=== PATIENT | female | born 1955 | race American Indian/Alaskan Native ===

== ENCOUNTER 2021-02-06 22:45 | Inpatient (IN) | payer OTHER ==
[~2021-02-06] VITALS: Ht 167.6 cm; Wt 77.4 kg
[~2021-02-06 22:45] MED LIST: ATEN25; ATOM60; Augmentin 875-1 EACH PO; BUDE32NIS; CALCAVITD PO; CALPHO600; CHLO25A; CLIN300 PO; CRUTCH3 USE; Flonase 0.05% N16 GM; HYDACE5; HYDACE5 PO; HYDACE5325 PO; IBUP600 PO; LEVOTHYROXIN; LEVSOD137; LEVSOD150 PO; Lisinopril2.5 MG; METOPROLOL; MULVITA; NAPR500 PO; NEOPOLHCSU AS; NEOPOLHYDS OT; Norco 5-325 Ta1 EACH PO; OXYACE5T PO; PENVK500 PO; POTA8; PSEU120ER PO; SERT50; VITAMINS; ZIPR60; [UNRECOGNIZED DRUG - OTHER]
[2021-02-07 00:30] LABS: Base Excess Venous 4.8 mmol/L; Bicarbonate Venous 28.1 mmol/L (24.0-30.0); PCO2 Venous 44.5 mmHg (38-42); PO2 Venous 185 mmHg (38-42); pH Blood Venous 7.43 (7.34-7.37)
[2021-02-07 00:30] LABS: Calcium, Ionized (POC) 0.59 mmol/L (1.10-1.46); Chloride (POC) 93 mmol/L (98-108); Creatinine (POC) 2.1 mg/dL (0.6-1.0); Glucose (ISTAT POC) 126 mg/dL (70-99); Hemoglobin (POC) 13.6 g/dL (12.0-16.0); Potassium (POC) 3.1 mmol/L (3.5-5.5); Sodium (POC) 138 mmol/L (135-148); Total CO2 (POC) 29 mmol/L (21-32)
[2021-02-07 00:40] LABS: BASOPHILS ABSOLUTE AUTO 0.06 K/mm3 (0.00-0.23); BASOPHILS PERCENT AUTO 0 % (0-2); EOSINOPHILS ABSOLUTE AUTO 0.03 K/mm3 (0.00-0.68); EOSINOPHILS PERCENT AUTO 0 % (0-6); Hematocrit 36.9 % (33.0-51.0); Hemoglobin 12.1 g/dL (11.5-16.0); IMMATURE GRAN ABSOLUTE AUTO 0.12 K/mm3 (0.00-0.10); IMMATURE GRAN PERCENT AUTO 1 % (0-1); LYMPHOCYTES ABSOLUTE AUTO 1.32 K/mm3 (0.84-5.20); LYMPHOCYTES PERCENT AUTO 6 % (21-46); MONOCYTES ABSOLUTE AUTO 1.43 K/mm3 (0.16-1.47); MONOCYTES PERCENT AUTO 6 % (4-13); Mean Corpuscular HGB 30.5 pg (26.0-34.0); Mean Corpuscular HGB Conc 32.8 g/dL (31.5-36.5); Mean Corpuscular Volume 93 fL (80-100); Mean Platelet Volume 9.9 fL (9.1-12.4); NEUTROPHILS ABSOLUTE AUTO 19.42 K/mm3 (1.96-9.15); NEUTROPHILS PERCENT AUTO 87 % (41-73); Platelet Count 225 K/mm3 (150-400); RDW Coefficient Variation 14.6 % (11.7-14.2); RDW Standard Deviation 49.3 fL (35.1-46.3); Red Blood Cell Count 3.97 M/mm3 (3.80-5.20); White Blood Cell Count 22.38 K/mm3 (4.00-11.30)
[2021-02-07 01:30] LABS: Ethanol (Alcohol), Blood, Med <3 mg/dL; Troponin I <0.015 ng/mL (0.000-0.040)
[2021-02-07 01:31] LABS: Alanine Aminotransfer (ALT/SGP 27 U/L (12-78); Albumin, Blood 3.4 g/dL (3.4-5.0); Albumin/Globulin Ratio 0.7 (0.8-1.8); Alk Phos 92 U/L (50-136); Anion Gap 7 mmol/L (6-16); Aspartate Aminotrans (AST/SGOT 47 U/L (12-37); Bilirubin, Total 1.7 mg/dL (0.1-1.0); Blood Urea Nitrogen 21 mg/dL (8-24); Bun/Creatinine Ratio 10.4 (12.0-20.0); CO2, Blood 32 mmol/L (21-32); CPK Creatine Kinase 2451 U/L (26-193); Calcium, Blood 5.6 mg/dL (8.5-10.1); Chloride, Blood 94 mmol/L (98-108); Creatinine, Blood 2.02 mg/dL (0.40-1.00); Globulin, Blood 4.9 g/dL (2.2-4.0); Glomerular Filtration Rate 26 (60-); Glucose, Blood 130 mg/dL (70-99); Potassium, Blood 2.8 mmol/L (3.5-5.5); Sodium, Blood 133 mmol/L (136-145); Total Protein, Blood 8.3 g/dL (6.4-8.2)
[2021-02-07 01:51] LABS: Creatine Kinase MB 5.2 ng/mL (0.0-3.6); Creatine Kinase MB Index 0.2 (0.0-4.0)
[2021-02-07 02:26] LABS: Source, Urine Catheter
[2021-02-07 02:29] LABS: Bilirubin, Urine Neg (Neg); Blood, Urine 2+ (Neg); Glucose Qualitative, Urine Neg (Neg); Ketones, Urine Neg (Neg); Leukocyte Esterase, Urine Neg (Neg); Nitrite, Urine Neg (Neg); Protein, Urine 2+ (Neg); Urobilinogen, Urine NORM (Normal); pH, Urine 6.5 (5.0-8.0)
[2021-02-07 02:30] LABS: Appearance, Urine Clear (Clear); Color, Urine Yellow (P-Yellow)
[2021-02-07 02:36] LABS: Bacteria Not Seen /hpf; Red Blood Cells, Urine 0-2 /hpf (0-2); White Blood Cells, Urine 0-2 /hpf (0-5)
[2021-02-07 02:37] LABS: Mucus Light (0-Heavy); Squamous Epithelial Cells Few /hpf (Few)
[2021-02-07 02:42] LABS: U Amphetamine Screen DETECTED; U Barbituate Screen Not Detected; U Benzodiazapine Screen Not Detected; U Buprenorphine Screen Not Detected; U Cannabinoids Screen Not Detected; U Cocaine Screen Not Detected; U Methadone Screen Not Detected; U Methamphetamine Screen DETECTED; U Opiates Screen Not Detected; U Oxycodone Screen Not Detected; U Phencyclidine Screen Not Detected; U Propoxyphene Screen Not Detected
[2021-02-07 05:33] LABS: BASOPHILS ABSOLUTE AUTO 0.06 K/mm3 (0.00-0.23); BASOPHILS PERCENT AUTO 0 % (0-2); EOSINOPHILS ABSOLUTE AUTO 0.09 K/mm3 (0.00-0.68); EOSINOPHILS PERCENT AUTO 0 % (0-6); Hematocrit 38.4 % (33.0-51.0); Hemoglobin 12.6 g/dL (11.5-16.0); IMMATURE GRAN ABSOLUTE AUTO 0.14 K/mm3 (0.00-0.10); IMMATURE GRAN PERCENT AUTO 1 % (0-1); LYMPHOCYTES ABSOLUTE AUTO 1.53 K/mm3 (0.84-5.20); LYMPHOCYTES PERCENT AUTO 6 % (21-46); MONOCYTES ABSOLUTE AUTO 1.56 K/mm3 (0.16-1.47); MONOCYTES PERCENT AUTO 6 % (4-13); Mean Corpuscular HGB 30.6 pg (26.0-34.0); Mean Corpuscular HGB Conc 32.8 g/dL (31.5-36.5); Mean Corpuscular Volume 93 fL (80-100); Mean Platelet Volume 9.4 fL (9.1-12.4); NEUTROPHILS ABSOLUTE AUTO 20.83 K/mm3 (1.96-9.15); NEUTROPHILS PERCENT AUTO 86 % (41-73); Platelet Count 234 K/mm3 (150-400); RDW Coefficient Variation 14.4 % (11.7-14.2); RDW Standard Deviation 49.3 fL (35.1-46.3); Red Blood Cell Count 4.12 M/mm3 (3.80-5.20); White Blood Cell Count 24.21 K/mm3 (4.00-11.30)
[2021-02-07 06:10] LABS: Albumin/Globulin Ratio 0.6 (0.8-1.8); Bilirubin, Total 1.3 mg/dL (0.1-1.0); Bun/Creatinine Ratio 10.4 (12.0-20.0); Calcium, Blood 6.1 mg/dL (8.5-10.1); Creatinine, Blood 1.73 mg/dL (0.40-1.00); Free Thyroxine 0.43 ng/dL (0.70-1.60); Globulin, Blood 4.9 g/dL (2.2-4.0); Magnesium, Blood 1.8 mg/dL (1.6-2.4); Potassium, Blood 2.8 mmol/L (3.5-5.5); Total Protein, Blood 7.9 g/dL (6.4-8.2)
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
--- NOTE | 2021-02-07 12:58 | NUR ---
PODIATRY INITIALLY WHEN THE PT WAS ADMITTED A PODIATRY CONSULT WAS ORDERED, THE CONSULT WAS CALLED IN TO THE ANSWERING SERVICE BUT RN WAS INFORMED NO UROLOGY PHYSICIAN ASSISTANT WAS ONCALL. RN MATO REACHED OUT TO DR. JACOME AND WAS UNABLE TO MAKE CONTACT WITH DR. COLLADO TO SEE IF THEY WOULD BE WILLING TO SEE THE PATIENT. DR. JACOME WAS UNABLE. DR. FERNANDEZ ASKED THAT AN ORTHO CONSULT THEN BE MADE AND SEE IF MELONY COULD HELP. DR. TY STATED HE WAS UNABLE TO ASSIST WITH THIS PATIENT AFTER REVIEWING THE XRAY AND TO REACH OUT AGAIN TO PODIATRY. DR. PANCHAL WAS UPDATED ON THE CONSULT AND AT THIS TIME ALL CONSULTS HAVE BEEN DISCONTINUED.
[2021-02-07 17:50] LABS: Bun/Creatinine Ratio 9.4 (12.0-20.0); Creatinine, Blood 1.59 mg/dL (0.40-1.00); Potassium, Blood 3.4 mmol/L (3.5-5.5)
[2021-02-07 18:00] LABS: Calcium, Blood 5.7 mg/dL (8.5-10.1)
--- NOTE | 2021-02-07 19:12 | NUR ---
SHIFT SUMMARY PT CONTINUES TO BE LETHARGIC, SHE IS AROUSABLE HOWEVER. PT HAS A SIGNIFICANT AMOUNT OF PAIN SURROUNDING THE FOREGIN BODY IN HER RIGHT FOOT; IT IS RED AND SWOLLEN. PODIATRY WAS UNAVAILABLE SO DYLON FERNANDEZ ASSISTED DR. John PANCHAL IN DRAINING THE ABCESS AND ATTEMPTING TO REMOVE THE FOREGIN BODY. DR PANCHAL WAS UNABLE TO RETRIEVE THE OBJECT BUT WAS ABLE TO DRAIN THE ABCESS POCKET. THE SITE WAS PACKED WITH WET ROPE GAUZE, COVERED WITH 4x4'S WRAPPED IN KERLEX AND TAPED. PT TOLERATED WELL, PT WAS GIVEN 1MG OF DILAUDID FOR PAIN AND LIDOCAINE WITH EPI WAS USED A NUMBING AGENT. PT MET WITH AN ADVOCATE FROM [employer] [facility] TODAY TO GET SOME EXTRA SUPPORT WITH A SAFE ENVIRONMENT AT HOME. PT HAD SIGNIFICANT POTASSIUM REPLACEMENT TODAY. PT IS RESTING IN BED AT THIS TIME
--- NOTE | 2021-02-07 21:42 | NUR ---
PT UPDATE LAB CALLED W/ BLOOD CULTURE RESULT: GRAM + COCCI IN CLUSTERS. CALL MADE TO PHARMACY. PHARMACY STATES THAT LEVAQUIN, WHICH THE PT IS ON, WOULD NOT FULLY COVER. CALL PLACED TO MD ALANIZ. AWARE AND WITH NO FURTHER ORDERS.
--- NOTE | 2021-02-08 04:32 | NUR ---
SHIFT SUMMARY NO ACUTE CHANGES THIS SHIFT. VSS. PT A&OX4, DROWSY BUT ANSWERS QUESTIONS APPROPRIATELY. SP02>92% ON RA. TELEMETRY READS SR, HR 70'S. PT DENIES PAIN EXCEPT WHEN R FOOT IS TOUCHED. PT REPOSITIONINED SELF T/O NIGHT. SLEPT MOST OF SHIFT. CALL LIGHT IN REACH. WILL GIVE REPORT TO ONCOMING NURSE.
--- NOTE | 2021-02-08 12:53 | NUR ---
REPORT GIVEN TO DYLON ANDERS ON MEDICAL FLOOR TO ASSUME CARE FOR IN HOUSE TRANSFER.
--- NOTE | 2021-02-08 13:14 | NUR ---
PT TRANSFERED TO 328, REPORT CALLED BY JIM OSBORNE. PT WITH POTASSIUM INFUSING AT 12.5ML/HR PT WAS UNABLE TO TOLERATE A RATE HIGHER THAN 12.5 WITH NS INFUSING ALONG SIDE OF IT. MARTITA OSBORNE MADE AWARE OF [facility] CONSULT THAT THEY WILL PROVIDE PT WITH SAFE SPACE AND RIDE UPON D/C
--- NOTE | 2021-02-08 18:30 | NUR ---
SHIFT SUMMARY- PT TRANSFERED FROM PCU THIS AFTERNOON. SHE IS RECIEVING HER IV POTASSIUM. SHE HAS BEEN ASLEEP SINCE TRANSFER. 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 SHE RECIEVED TYLENOL FOR PAIN. HER BED IS IN THE LOW POSITION AND CALL LIGHT IS WITIN REACH.
[2021-02-09 01:38] LABS: Creatinine, Blood 1.46 mg/dL (0.40-1.00)
--- NOTE | 2021-02-09 04:37 | NUR ---
SUMMARY PT HAS SLEPT T/O SHIFT. PT ONLY WOKE UP TO ASK FOR PAIN MED. PT TX W/ TYLENOL W/ RELIEF. PT HAD A CRITAL CALCIUM. DR GONZALEZ CALLED AND CALCIUM WAS ORDERED. NO OTHER ISSUES NOTED. PT CURRENTLY SLEEPINGIN NO DISTRESS. CALL LIGHT IN REACH.
[2021-02-09 07:09] LABS: HBSAG SCREEN Negative (Negative); HEP A AB, IGM Negative (Negative); HEP B CORE AB, IGM Negative (Negative); HEP C VIRUS AB <0.1 (0.0-0.9); HIV SCREEN 4TH GENERATION WRFX Non Reactive (Non Reactive)
[2021-02-09 13:24] LABS: Bun/Creatinine Ratio 10.4 (12.0-20.0); Calcium, Blood 6.5 mg/dL (8.5-10.1); Creatinine, Blood 1.25 mg/dL (0.40-1.00); Potassium, Blood 2.6 mmol/L (3.5-5.5)
--- NOTE | 2021-02-09 18:43 | NUR ---
SHIFT SUMMARY- PT HAS BEEN SLEEPING MOST OF THIS SHIFT. SHE WOKE UP FOR MEALS. SHE HAS BEEN HAVING INC VOIDS. SHE REQUIRED BED CHANGES TWICE THIS SHIFT. SHE IS EATING AND DRINKING WELL. HER BED IS IN THE LOW POSITION AND CALL LIGHT IS WITIN REACH.
--- NOTE | 2021-02-09 19:15 | NUR ---
ASSUMED CARE RECEIVED REPORT FROM DYLON TILLEY. PT RESTING, DROWSY, BUT AROUSES TO VERBAL STIMULI, PER REPORT, HAS BEEN SLEEPING T/O MUCH OF THE DAY. NO ACUTE NEEDS ASSESSED AT THIS TIME. CALL LIGHT, POSSESSIONS IN REACH, BED IN LOW AND LOCKED POSITION WITH ALARMS ON.
--- NOTE | 2021-02-09 19:25 | NUR ---
ASSUMED CARE RECEIVED REPORT FROM LADI Urena RN. PT RESTING, IN NAD. NO ACUTE NEEDS ASSESSED AT THIS TIME. CALL LIGHT, POSSESSIONS IN REACH. BED IN LOW AND LOCKED POSITION WITH ALARMS ON.
--- NOTE | 2021-02-09 19:54 | NUR ---
SPOKE TO DR. ALANIZ REGARDING PT'S K+ 2.6. ORDERS RECEIVED.
--- NOTE | 2021-02-10 04:10 | NUR ---
SPOKE TO DR. RIGGS REGARDING PT'S PREVIOUS K+ OF 2.6 AND REPLACEMENT WITH IV KCL OVERNIGHT, AND NEED FOR A RE-CHECK OF K+ LEVEL. ORDERS RECEIVED.
--- NOTE | 2021-02-10 04:51 | NUR ---
BEACH ATTENDANT SUMMARY PT DROWSY, AROUSABLE TO VERBAL STIMULI. SLEPT T/O MUCH OF THE NIGHT. VS REVIEWED,WNL. PAIN MANAGED WITH PRN TYLENOL, WITH GOOD RELIEF. RT FOOT/RLE REMAINS RED AND EDEMATOUS, TENDER TO PALPATION. KERLIX APPLIED TO RT FOOT, DRSG C/D/I. ELEVATED ON PILLOWS. REMAINS INCONTINENT OF URINE, ATTENDS IN PLACE. NO ACUTE NEEDS ASSESSED AT THIS TIME. CALL LIGHT, POSSESSIONS IN REACH, BED IN LOW AND LOCKED POSITION WITH ALARMS ON. WILL CONTINUE TO PROVIDE CARE UNTIL REPORT GIVEN TO ONCOMING RN.
[2021-02-10 05:09] LABS: Bun/Creatinine Ratio 8.7 (12.0-20.0); Calcium, Blood 6.2 mg/dL (8.5-10.1); Creatinine, Blood 1.04 mg/dL (0.40-1.00); Potassium, Blood 2.9 mmol/L (3.5-5.5)
[2021-02-10 12:44] LABS: Vancomycin, Trough 9.6 ug/mL (5.0-10.0)
--- NOTE | 2021-02-10 18:34 | NUR ---
SHIFT SUMMARY: NO ACUTE EVENTS TO REPORT THSI SHIFT. PT A&O; CALM AND COOPERATIVE WITH CARE. NO C/O PAIN THIS SHIFT. CELLULITIS R FOOT; WARM, RED; IV ABX CONTINUING. AWAITING PODIATRY CONSULT ON MONDAY 02/12. WCKAREN.
--- NOTE | 2021-02-10 19:15 | NUR ---
ASSUMED CARE RECEIVED REPORT FROM DYLON VALDEZ. PT RESTING, SON AT THE BEDSIDE. PT IN NAD. NO ACUTE NEEDS ASSESSED AT THIS TIME. CALL LIGHT, POSSESSIONS IN REACH, BED IN LOW AND LOCKED POSITION WITH ALARMS ON.
--- NOTE | 2021-02-10 22:36 | NUR ---
SPOKE TO DR. ALANIZ REGARDING PTS NEED TO HAVE K+ RE CHECKED. ORDERS RECEIVED.
[2021-02-11 05:56] LABS: Anion Gap 7 mmol/L (6-16); Blood Urea Nitrogen 7 mg/dL (8-24); Bun/Creatinine Ratio 7.2 (12.0-20.0); CO2, Blood 28 mmol/L (21-32); Calcium, Blood 6.1 mg/dL (8.5-10.1); Chloride, Blood 100 mmol/L (98-108); Creatinine, Blood 0.97 mg/dL (0.40-1.00); Glomerular Filtration Rate >60 (60-); Glucose, Blood 154 mg/dL (70-99); Potassium, Blood 3.1 mmol/L (3.5-5.5); Sodium, Blood 135 mmol/L (136-145)
--- NOTE | 2021-02-11 06:48 | NUR ---
EMBOSSER OPERATOR SUMMARY PT SITTING UP IN BED WATCHING TV, IN NAD. VS REVIEWED,WNL. INCREASINGLY ALERT THIS AM, APPEARS TO BE LESS DROWSY. IMPROVED APPETITE. ENCOURAGED USE OF BEDPAN T/O NIGHT, CONTINUES TO HAVE PERIODS OF INCONTINENCE; ATTENDS IN PLACE. RLE ELEVATED ON PILLOWS. PAIN MANAGED WITH MEDS PER EMAR. K+ LEVELS TRENDING UP THIS AM. NO CARDIAC EVENTS OVERNIGHT. NO ACUTE NEEDS ASSESSED AT THIS TIME. CALL LIGHT, POSSESSIONS IN REACH, BED IN LOW AND LOCKED POSITION WITH ALARMS ON. WILL REPORT OFF TO ONCOMING RN.
--- NOTE | 2021-02-11 18:17 | NUR ---
SHIFT SUMMARY: NO ACUTE EVENTS TO REPORT THIS SHIFT. PT A&O; LABILE; COOPERATIVE WITH CARE. MEDICATED FOR R FOOT PAIN PER EMAR. TELE IN PLACE; SR IN 80S. AWAITING PODIATRY CONSULT R/T R FOOT FOREIGN BODY & ABSCESS. WCTM.
--- NOTE | 2021-02-11 19:15 | NUR ---
ASSUMED CARE RECEIVED REPORT FROM DYLON VALDEZ. PT SITTING IN CHAIR, IN NAD. A&O, CONVERSING WITH STAFF. NO ACUTE NEEDS ASSESSED AT THIS TIME. CALL LIGHT, POSSESSIONS IN REACH. TAB ALARM PLACED.
--- NOTE | 2021-02-12 04:18 | NUR ---
FLOOR CLERK SUMMARY PT ASLEEP, IN NAD. VS REVIEWED,WNL. PT INCREASINGLY ALERT T/O SHIFT, ABLE TO MAKE NEEDS KNOWN. PAIN MANAGED WITH MEDS PER EMAR, WITH GOOD RELIEF. RLE ELEVATED ON PILLOWS. NO CARDIAC EVENTS OVERNIGHT, NO ACUTE CHANGES IN CONDITION NOTED. NO ACUTE NEEDS ASSESSED AT THIS TIME. CALL LIGHT, POSSESSIONS IN REACH, BED IN LOW AND LOCKED POSITION WITH ALARMS ON.
[2021-02-12 05:54] LABS: Magnesium, Blood 1.4 mg/dL (1.6-2.4)
[2021-02-12 05:57] LABS: Anion Gap 8 mmol/L (6-16); Blood Urea Nitrogen 11 mg/dL (8-24); Bun/Creatinine Ratio 11.7 (12.0-20.0); CO2, Blood 28 mmol/L (21-32); Chloride, Blood 99 mmol/L (98-108); Creatinine, Blood 0.94 mg/dL (0.40-1.00); Glomerular Filtration Rate >60 (60-); Glucose, Blood 148 mg/dL (70-99); Potassium, Blood 2.9 mmol/L (3.5-5.5); Sodium, Blood 135 mmol/L (136-145)
[2021-02-12 05:59] LABS: Calcium, Blood 5.9 mg/dL (8.5-10.1)
[2021-02-12 12:52] LABS: Vancomycin, Trough 20.3 ug/mL (5.0-10.0)
--- NOTE | 2021-02-12 18:19 | NUR ---
SHIFT SUMMARY PT AxOx4. PT WAS VERY EMOTIONAL TODAY. PT HAD INFUSION OF POTASSIUM, MAGNESIUM AND CALCIUM TODAY AND STRUGGLED WITH ONGOING IV SITE PAIN. 2 NEW PERIPHERAL IV'S PLACED IN LFA & LAC. DR CHANGED ORDER TO PO POTASSIUM AND DC'D LAST 2 BAGS OF KCL. PT REPORTED PAIN IN HIPS AND RLE. MEDICATED PER EMAR. DR BARRAGAN CONSULT CALLED TODAY. PER HIS OFFICE, HE SHOULD COME BY THIS EVENING TO SEE THE PATIENT. VITALS REVIEWED. PT CURRENTLY RESTING IN BED WITH CALL LIGHT IN REACH. DENIES ANY NEEDS AT THIS TIME.
--- NOTE | 2021-02-13 04:23 | NUR ---
SHIFT SUMMARY- PT. A&O, C/O BURNING PAIN TO R FOOT. MEDICATED PER EMAR WITH GOOD EFFECT. PT. CONT/INCONT, ATTENDS IN PLACE AND OCCASIONALLY USING BEDPEN. PT. SLEEPING ON/OFF T/O THE NIGHT, NO APPARENT DISTRESS NOTED, VSS. CALL LIGHT WITHIN REACH AND SIDE RAILS UPX2. WILL CONT TO MONITOR.
[2021-02-13 07:13] LABS: Anion Gap 7 mmol/L (6-16); Blood Urea Nitrogen 10 mg/dL (8-24); Bun/Creatinine Ratio 10.3 (12.0-20.0); CO2, Blood 29 mmol/L (21-32); Calcium, Blood 5.5 mg/dL (8.5-10.1); Chloride, Blood 98 mmol/L (98-108); Creatinine, Blood 0.97 mg/dL (0.40-1.00); Glomerular Filtration Rate >60 (60-); Glucose, Blood 183 mg/dL (70-99); Potassium, Blood 3.2 mmol/L (3.5-5.5); Sodium, Blood 134 mmol/L (136-145)
[2021-02-13 12:50] LABS: SARS-Cov-2 (COVID-19) PCR, MMC NEGATIVE (NEGATIVE)
--- NOTE | 2021-02-13 13:55 | NUR ---
PT WITH C/O 10/10 PAIN IN RIGHT FOOT AND SOBBING "IT GRIMES IT GRIMES." DR. CARBALLO CONTACTED AND STATED TO GIVE PT ALREADY ORDERED ORAL NORCO.
--- NOTE | 2021-02-13 14:01 | NUR ---
PT TRANSFERED FROM FLOOR [facility]IA [facility] TO [facility]. History, Chart, Medications and Allergies reviewed before start of procedure. Lungs clear T/O to Auscultation. Patient confirms NPO status and agrees with scheduled surgery. Pre-Op teaching done. Pt verbalizes understanding. PT'S 20 GAUGE IV IN LAC PATENT.
--- NOTE | 2021-02-13 16:21 | NUR ---
CAP REFILL ON GREAT TOE AND NEXT 2 IS WNL, NEXT TOE COVERED WITH DRESSING AND THE NEXT ONE IS DUSKY COLOR . DR BARRAGAN AWARE OF THIS
--- NOTE | 2021-02-13 18:40 | NUR ---
SHIFT SUMMARY: PT A&O; CALM AND COOPERATIVE WITH CARE. MEDICATED FOR R FOOT PAIN PER EMAR. I&D OF R FOOT THIS SHIFT; FOREIGN BODY REMOVED; CULTURES TAKEN; PT TOLERATED WELL. IV ABX CONTINUING. WCTM.
--- NOTE | 2021-02-14 04:02 | NUR ---
SHIFT SUMMARY PT IS POST I&D OF R FOOT YESTERDAY, DRESSING INTACT AND PLACED BY SURGEON. DRESSING TO BE CHANGED IN 48 HOURS PER ORDER. PT HAS HAD SOME PAIN THAT IS CONTROLLED WITH NORCO. IV ANTIBIOTICS PER ORDERS. NO ACUTE CHANGES OVERNIGHT, POST OP VITALS STABLE. BED IN LOWEST POSITION, CALL LIGHT WITHIN REACH.
[2021-02-14 05:51] LABS: BASOPHILS ABSOLUTE AUTO 0.09 K/mm3 (0.00-0.23); BASOPHILS PERCENT AUTO 0 % (0-2); EOSINOPHILS PERCENT AUTO 1 % (0-6); Hematocrit 31.3 % (33.0-51.0); Hemoglobin 10.5 g/dL (11.5-16.0); IMMATURE GRAN PERCENT AUTO 4 % (0-1); LYMPHOCYTES PERCENT AUTO 6 % (21-46); MONOCYTES ABSOLUTE AUTO 1.55 K/mm3 (0.16-1.47); MONOCYTES PERCENT AUTO 6 % (4-13); Mean Corpuscular HGB 30.3 pg (26.0-34.0); Mean Corpuscular HGB Conc 33.5 g/dL (31.5-36.5); Mean Corpuscular Volume 91 fL (80-100); Mean Platelet Volume 8.7 fL (9.1-12.4); NEUTROPHILS ABSOLUTE AUTO 20.47 K/mm3 (1.96-9.15); NEUTROPHILS PERCENT AUTO 82 % (41-73); Platelet Count 331 K/mm3 (150-400); RDW Coefficient Variation 14.4 % (11.7-14.2); RDW Standard Deviation 47.7 fL (35.1-46.3); Red Blood Cell Count 3.46 M/mm3 (3.80-5.20); White Blood Cell Count 24.91 K/mm3 (4.00-11.30)
[2021-02-14 06:20] LABS: Magnesium, Blood 1.6 mg/dL (1.6-2.4)
[2021-02-14 06:29] LABS: Anion Gap 8 mmol/L (6-16); Blood Urea Nitrogen 9 mg/dL (8-24); Bun/Creatinine Ratio 10.9 (12.0-20.0); CO2, Blood 29 mmol/L (21-32); Chloride, Blood 94 mmol/L (98-108); Creatinine, Blood 0.83 mg/dL (0.40-1.00); Glomerular Filtration Rate >60 (60-); Glucose, Blood 226 mg/dL (70-99); Potassium, Blood 3.5 mmol/L (3.5-5.5); Sodium, Blood 131 mmol/L (136-145)
[2021-02-14 06:30] LABS: Calcium, Blood 5.3 mg/dL (8.5-10.1)
[2021-02-14 12:46] LABS: Vancomycin, Trough 18.2 ug/mL (5.0-10.0)
--- NOTE | 2021-02-14 18:13 | NUR ---
SHIFT SUMMARY PT AxOx4. PLEASANT AND COOPERATIVE WITH CARE. PT HAD 2 BAGS OF CALCIUM INFUSION AND IV ABX. TELE DC'D. PER STUDY DIRECTOR, TELE RUNNING SR AT 93. PHYSICAL THERAPY AND OT WORKED WITH PATIENT TODAY. PT ABLE TO GET UP TO BSC AND CHAIR. PT REPORTS PAIN IN RLE. MEDICATED PER EMAR. WOUND CARE NOT COMPLETED- WAITING ON SURGEON ROUNDS THIS EVENING TO UNDRESS RLE. DRESSING CURRENTLY C/D/I. PT VITALS REVIEWED. PT CURRENTLY RESTING IN BED WITH CALL LIGHT IN REACH. DENIES ANY NEEDS AT THIS TIME.
[2021-02-15 05:22] LABS: Hematocrit 32.1 % (33.0-51.0); Hemoglobin 10.6 g/dL (11.5-16.0); Mean Corpuscular HGB 29.9 pg (26.0-34.0); Mean Corpuscular Volume 91 fL (80-100); Mean Platelet Volume 8.7 fL (9.1-12.4); Platelet Count 354 K/mm3 (150-400); RDW Coefficient Variation 14.4 % (11.7-14.2); RDW Standard Deviation 48.4 fL (35.1-46.3); Red Blood Cell Count 3.54 M/mm3 (3.80-5.20); White Blood Cell Count 18.16 K/mm3 (4.00-11.30)
[2021-02-15 05:54] LABS: BAND PERCENT MAN 4 % (0-8); BASOPHILS PERCENT MAN 0 % (0-2); EOSINOPHILS ABSOLUTE MAN 0.36 K/mm3 (0.00-0.68); EOSINOPHILS PERCENT MAN 2 % (0-6); LYMPHOCYTES ABSOLUTE MAN 2.72 K/mm3 (0.84-5.20); LYMPHOCYTES PERCENT MAN 15 % (21-46); METAMYELOCYTE ABSOLUTE MAN 0.18 K/mm3 (0.00-0.00); METAMYELOCYTE PERCENT MAN 1 % (0-0); MONOCYTES ABSOLUTE MAN 1.27 K/mm3 (0.16-1.47); MONOCYTES PERCENT MAN 7 % (4-13); MYELOCYTE ABSOLUTE MAN 0.18 K/mm3 (0.00-0.00); MYELOCYTE PERCENT MAN 1 % (0-0); NEUTROPHILS ABSOLUTE MAN 13.43 K/mm3 (1.96-9.15); SEG NEUTROPHILS PERCENT MAN 70 % (41-73); TOTAL CELLS COUNTED 100
[2021-02-15 06:03] LABS: Anion Gap 6 mmol/L (6-16); Blood Urea Nitrogen 13 mg/dL (8-24); Bun/Creatinine Ratio 14.8 (12.0-20.0); CO2, Blood 32 mmol/L (21-32); Calcium, Blood 5.6 mg/dL (8.5-10.1); Chloride, Blood 95 mmol/L (98-108); Creatinine, Blood 0.88 mg/dL (0.40-1.00); Glomerular Filtration Rate >60 (60-); Glucose, Blood 186 mg/dL (70-99); Potassium, Blood 3.7 mmol/L (3.5-5.5); Sodium, Blood 133 mmol/L (136-145)
--- NOTE | 2021-02-15 06:29 | NUR ---
SUMMARY PT PAIN TX PER EMAR. PT PAIN RELIEVED WELL. PT SLEPT T/O SHIFT W/O ISSUE. PT CURRENTLY SLEEPING IN NO DISTRESS. CALL LIGHT IN REACH AND BED ALARM.
[2021-02-16 00:08] LABS: CHLAMYDIA TRACHOMATIS, NAA Negative (Negative)
[2021-02-16 05:44] LABS: BASOPHILS ABSOLUTE AUTO 0.05 K/mm3 (0.00-0.23); BASOPHILS PERCENT AUTO 0 % (0-2); EOSINOPHILS ABSOLUTE AUTO 0.44 K/mm3 (0.00-0.68); EOSINOPHILS PERCENT AUTO 3 % (0-6); Hematocrit 30.2 % (33.0-51.0); Hemoglobin 10.1 g/dL (11.5-16.0); IMMATURE GRAN ABSOLUTE AUTO 0.77 K/mm3 (0.00-0.10); IMMATURE GRAN PERCENT AUTO 5 % (0-1); LYMPHOCYTES ABSOLUTE AUTO 1.73 K/mm3 (0.84-5.20); LYMPHOCYTES PERCENT AUTO 10 % (21-46); MONOCYTES ABSOLUTE AUTO 1.22 K/mm3 (0.16-1.47); MONOCYTES PERCENT AUTO 7 % (4-13); Mean Corpuscular HGB 30.3 pg (26.0-34.0); Mean Corpuscular HGB Conc 33.4 g/dL (31.5-36.5); Mean Corpuscular Volume 91 fL (80-100); Mean Platelet Volume 8.9 fL (9.1-12.4); NEUTROPHILS ABSOLUTE AUTO 13.01 K/mm3 (1.96-9.15); NEUTROPHILS PERCENT AUTO 76 % (41-73); Platelet Count 345 K/mm3 (150-400); RDW Standard Deviation 46.8 fL (35.1-46.3); Red Blood Cell Count 3.33 M/mm3 (3.80-5.20); White Blood Cell Count 17.22 K/mm3 (4.00-11.30)
[2021-02-16 06:32] LABS: Anion Gap 7 mmol/L (6-16); Blood Urea Nitrogen 13 mg/dL (8-24); Bun/Creatinine Ratio 17.2 (12.0-20.0); CO2, Blood 30 mmol/L (21-32); Calcium, Blood 5.8 mg/dL (8.5-10.1); Chloride, Blood 93 mmol/L (98-108); Creatinine, Blood 0.76 mg/dL (0.40-1.00); Glomerular Filtration Rate >60 (60-); Glucose, Blood 207 mg/dL (70-99); Potassium, Blood 3.3 mmol/L (3.5-5.5); Sodium, Blood 130 mmol/L (136-145)
--- NOTE | 2021-02-16 06:42 | NUR ---
CRITICAL CALCIUM: CALCIUM IS CRITICAL AT 5.8. DR ALANIZ IS NOTIFIED AND ORDERS WERE OBTAINED, SEE MAR.
--- NOTE | 2021-02-16 07:30 | NUR ---
SHIFT SUMMARY: NO ACUTE CHANGES, VSS, PAIN IN R FOOT IS MINIMAL COMPARED TO THE LOW BACK PAIN. TYLENOL AND NORCO HAVE PROVIDED GOOD PAIN RELIEF. HEATING PAD AND ENCOURAGEMENT TO GET OOB AND INTO THE CHAIR TODAY TO HELP WITH BACK PAIN.
[2021-02-16 13:41] LABS: Vancomycin, Trough 16.7 ug/mL (5.0-10.0)
--- NOTE | 2021-02-16 18:14 | NUR ---
FAMILY REQUESTS DEFINITE DISCHARGE PLAN BY TOMORROW AFTERNOON, SO THEY MAY BEGIN DRIVE FROM [place], TO PICK HER UP ON FRIDAY. MD STATES PATIENT WILL D/C FRIDAY. FAMILY PLANS TO CALL TOMORROW TO CONFIRM.
--- NOTE | 2021-02-17 05:23 | NUR ---
SHIFT SUMMARY NO ACUTE CHANGES THIS SHIFT, MEDICATED 2X FOR PAIN, PT REMAINED IN RECLINER T/O THE NIGHT AND WAS UNWILING TO GET UP TO BSC (USES BP IN CHAIR), MEDICATED 2X FOR PAIN, NO OTHER C/O ANY KIND, SLEEPING IN RECLINER AT THIS TIME, CALL LIGHT IN REACH, WILL CONT TO MONITOR UNTIL REPORT GIVEN TO DAY RN.
[2021-02-17 05:30] LABS: BASOPHILS ABSOLUTE AUTO 0.08 K/mm3 (0.00-0.23); BASOPHILS PERCENT AUTO 1 % (0-2); EOSINOPHILS ABSOLUTE AUTO 0.44 K/mm3 (0.00-0.68); EOSINOPHILS PERCENT AUTO 3 % (0-6); Hematocrit 31.8 % (33.0-51.0); Hemoglobin 10.6 g/dL (11.5-16.0); IMMATURE GRAN ABSOLUTE AUTO 0.81 K/mm3 (0.00-0.10); IMMATURE GRAN PERCENT AUTO 6 % (0-1); LYMPHOCYTES ABSOLUTE AUTO 1.72 K/mm3 (0.84-5.20); LYMPHOCYTES PERCENT AUTO 12 % (21-46); MONOCYTES ABSOLUTE AUTO 1.08 K/mm3 (0.16-1.47); MONOCYTES PERCENT AUTO 8 % (4-13); Mean Corpuscular HGB 30.1 pg (26.0-34.0); Mean Corpuscular HGB Conc 33.3 g/dL (31.5-36.5); Mean Corpuscular Volume 90 fL (80-100); Mean Platelet Volume 8.8 fL (9.1-12.4); NEUTROPHILS ABSOLUTE AUTO 10.27 K/mm3 (1.96-9.15); NEUTROPHILS PERCENT AUTO 71 % (41-73); Platelet Count 370 K/mm3 (150-400); RDW Coefficient Variation 13.9 % (11.7-14.2); RDW Standard Deviation 46.5 fL (35.1-46.3); Red Blood Cell Count 3.52 M/mm3 (3.80-5.20)
[2021-02-17 05:56] LABS: Anion Gap 5 mmol/L (6-16); Blood Urea Nitrogen 15 mg/dL (8-24); CO2, Blood 34 mmol/L (21-32); Calcium, Blood 6.7 mg/dL (8.5-10.1); Chloride, Blood 89 mmol/L (98-108); Creatinine, Blood 0.94 mg/dL (0.40-1.00); Glomerular Filtration Rate >60 (60-); Glucose, Blood 223 mg/dL (70-99); Sodium, Blood 128 mmol/L (136-145)
[2021-02-17 06:11] LABS: BAND PERCENT MAN 5 % (0-8); BASOPHILS PERCENT MAN 0 % (0-2); EOSINOPHILS ABSOLUTE MAN 0.43 K/mm3 (0.00-0.68); EOSINOPHILS PERCENT MAN 3 % (0-6); LYMPHOCYTES ABSOLUTE MAN 1.87 K/mm3 (0.84-5.20); LYMPHOCYTES PERCENT MAN 13 % (21-46); MONOCYTES ABSOLUTE MAN 1.29 K/mm3 (0.16-1.47); MONOCYTES PERCENT MAN 9 % (4-13); SEG NEUTROPHILS PERCENT MAN 70 % (41-73); TOTAL CELLS COUNTED 100
--- NOTE | 2021-02-17 18:32 | NUR ---
SHIFT SUMMARY- PT IS A/O, PLESANT AND COOPERATIVE. SHE IS EATING AND DRINKING WELL. SHE IS RECIEVING IV ABX. HER DAUGHTER IN [place] CALLED TO FIND OUT IF PT WAS BEING DISCHARGED TOMORROW, ATEMPTED TO CALL HER BACK, NO ANSWER. SHE IS RECIEVING PAIN MEDICATION NEEDED. SHE WORKED WITH PT THIS AFTERNOON AND TOLERATED WELL. DID NOT CHANGE HER BANDAGE TODAY. DR. BARRAGAN CHANGED YESTERDAY AND IT WILL BE CHANGED TOMOROOW. SHE WAS UP TO THE CHAIR THIS SHIFT. SHE IS US[place] [facility] HER BED IS IN THE LOW POSITION AND CALL LIGHT IS WITHIN REACH.
[2021-02-18 05:47] LABS: BASOPHILS ABSOLUTE AUTO 0.06 K/mm3 (0.00-0.23); BASOPHILS PERCENT AUTO 1 % (0-2); EOSINOPHILS ABSOLUTE AUTO 0.38 K/mm3 (0.00-0.68); EOSINOPHILS PERCENT AUTO 3 % (0-6); Hematocrit 33.5 % (33.0-51.0); Hemoglobin 11.1 g/dL (11.5-16.0); IMMATURE GRAN ABSOLUTE AUTO 0.68 K/mm3 (0.00-0.10); IMMATURE GRAN PERCENT AUTO 6 % (0-1); LYMPHOCYTES ABSOLUTE AUTO 1.33 K/mm3 (0.84-5.20); LYMPHOCYTES PERCENT AUTO 11 % (21-46); MONOCYTES ABSOLUTE AUTO 1.17 K/mm3 (0.16-1.47); MONOCYTES PERCENT AUTO 10 % (4-13); Mean Corpuscular HGB 30.1 pg (26.0-34.0); Mean Corpuscular HGB Conc 33.1 g/dL (31.5-36.5); Mean Corpuscular Volume 91 fL (80-100); Mean Platelet Volume 8.6 fL (9.1-12.4); NEUTROPHILS ABSOLUTE AUTO 8.76 K/mm3 (1.96-9.15); NEUTROPHILS PERCENT AUTO 71 % (41-73); Platelet Count 355 K/mm3 (150-400); RDW Standard Deviation 46.5 fL (35.1-46.3); Red Blood Cell Count 3.69 M/mm3 (3.80-5.20); White Blood Cell Count 12.38 K/mm3 (4.00-11.30)
--- NOTE | 2021-02-18 05:50 | NUR ---
SHIFT SUMMARY- PT. S/P I&D AND FOREIGN BODY REMOVAL FROM R FOOT. PERFORMED DRESSING CHANGE PER ORDER LAST NIGHT. WOUND BLEEDING THROUGH BANADAGE. IV PAIN MED GIVEN PER EMAR PRIOR TO DSG CHANGE. CLEANED WOUND, COVERED WITH ABSORBENT GAUZE, WRAPPED WITH KERLEX AND PALAK WRAP. PT. TOLERATED WELL. R FOOT ELEVATED ON PILLOWS FOR COMFORT, PT. SLEPT T/O THE NIGHT, NO APPARENT DISTRESS NOTED. DENIED ANY NEEDS DURING THE NIGHT, VSS. CALL LIGHT WITHIN REACH AND SIDE RAILS UPX2. WILL CONT TO MONITOR.
[2021-02-18 06:12] LABS: Anion Gap 4 mmol/L (6-16); Blood Urea Nitrogen 13 mg/dL (8-24); Bun/Creatinine Ratio 15.9 (12.0-20.0); CO2, Blood 34 mmol/L (21-32); Calcium, Blood 6.6 mg/dL (8.5-10.1); Chloride, Blood 91 mmol/L (98-108); Creatinine, Blood 0.82 mg/dL (0.40-1.00); Glomerular Filtration Rate >60 (60-); Glucose, Blood 190 mg/dL (70-99); Potassium, Blood 3.5 mmol/L (3.5-5.5); Sodium, Blood 129 mmol/L (136-145)
[2021-02-18] MEDS ORDERED: VISBIOME 112.51 EACH PO (10:15)
[2021-02-18] MEDS ORDERED: HYDR1TAB94 PO (10:15)
[2021-02-18] MEDS ORDERED: SULTRIDS PO (10:16)
[2021-02-18] MEDS ORDERED: CALCIUM CARBON500 M1 PO (10:17)
--- NOTE | 2021-02-18 13:28 | NUR ---
PT DISCHARGED FROM THE UNIT. IVS REMOVED. DISCHARGE INSTRUCTIONS REVIEWED WITH PT AND WITH DAUGHTER IN LAW. MEDICATIONS FAXED TO [facility]. PT LEFT VIA WHEEL CHAIR. FAMILY TO DRIVE HOME
== END 2021-02-18 11:14 | disposition home or self-care (01) | DRG 854 ==
LOC: ER 22:45 → MEDS 02-07 03:01 → PCU 02-07 03:01 → MEDS 02-08 13:19
PROVIDERS: Emergency Medicine; Family Medicine; Hospitalist; Internal Medicine; Pharmacist; Physician Assistant; Podiatrist; ADMIT Internal Medicine
PROC: 0SCM0ZZ Extirpation of Matter from Right Metatarsal-Phalangeal Joint, Open Approach (ICD-10-PCS; 2021-02-13)
PROC: 0J9Q0ZZ Drainage of Right Foot Subcutaneous Tissue and Fascia, Open Approach (ICD-10-PCS; principal; 2021-02-13 07:30)
DX: A41.02 Sepsis due to Methicillin resistant Staphylococcus aureus (principal); L03.115 Cellulitis of right lower limb; N18.4 Chronic kidney disease, stage 4 (severe); E87.1 Hypo-osmolality and hyponatremia; M62.82 Rhabdomyolysis; T76.21XA Adult sexual abuse, suspected, initial encounter; L02.611 Cutaneous abscess of right foot; N39.0 Urinary tract infection, site not specified; N17.9 Acute kidney failure, unspecified; E87.6 Hypokalemia; E83.51 Hypocalcemia; Z51.5 Encounter for palliative care; E11.22 Type 2 diabetes mellitus with diabetic chronic kidney disease; F15.10 Other stimulant abuse, uncomplicated; Z20.822 Contact with and (suspected) exposure to COVID-19; E03.9 Hypothyroidism, unspecified; C73 Malignant neoplasm of thyroid gland; I12.9 Hypertensive chronic kidney disease with stage 1 through stage 4 chronic kidney disease, or unspecified chronic kidney disease; F10.10 Alcohol abuse, uncomplicated; E20.9 Hypoparathyroidism, unspecified; F90.9 Attention-deficit hyperactivity disorder, unspecified type; Z98.51 Tubal ligation status; Z90.49 Acquired absence of other specified parts of digestive tract; Z90.89 Acquired absence of other organs; Z90.710 Acquired absence of both cervix and uterus; Z90.721 Acquired absence of ovaries, unilateral; Z98.890 Other specified postprocedural states; Y09 Assault by unspecified means; Y07.59 Other non-family member, perpetrator of maltreatment and neglect
CPT/HCPCS: 36415; 70450; 71045; 72125; 73630; 80047; 80048; 80053; 80074; 80202; 81001; 82140; 82306; 82550; 82553; 82803; 82947; 83605; 83735; 84439; 84443; 84484; 85014; 85025; 86592; 87040; 87070; 87071; 87075; 87077; 87147; 87184; 87186; 87205; 87389; 87491; 87591; 93005; 93010; 94760; 96374; 96375; 97110; 97116; 97162; 97165; 97530; 97535; 99285-25; A9270; C1751; G0480; J0360; J0610; J1170; J1650; J1956; J2250; J2550; J3010; J3370; J3475; J3480; J7030; J7040; J7050; J7120; P9612; U0004